=== PATIENT | female | born 1955 | race Caucasian/White ===

== ENCOUNTER 2016-10-29 11:49 | Emergency (ER) | payer OTHER ==
[~2016-10-29] VITALS: Ht 165.1 cm; Wt 56.0 kg
[~2016-10-29 11:49] MED LIST: ALPR2TAB3 PO; AMIT10 PO; ATEN1TAB73 PO; CYCL1PAK PO; DICL75 PO; HYDR12.56 PO; HYDR200T3 PO; LOVA10TA PO; METH2.5 PO; PRED5TAB PO; SUMA50TA2 PO
[2016-10-29 11:53] VITALS: BP 128/72; PULSE 92; RESP 15; TEMP 98.4; O2SAT 99
--- NOTE | 2016-10-29 13:08 | PD ---
HPI Chief Complaint: Medical Clearance Time Seen by Provider: 12:57 Travel History International Travel<30 days: No Contact w/Intl Traveler<30days: No Traveled to known affect area: No History of Present Illness HPI 60-year-old female presents to the ED for evaluation of 3 day history of sore throat, difficulty swallowing her own secretions. She denies fever, chills, nausea, vomiting, headache, ear pain, rhinorrhea, cough. She denies known sick contacts. 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 No treatments at the home. PFSH Past Medical History Arthritis: Yes Cancer: No Cardiovascular Problems: Yes Diabetes: No Glaucoma: No Hepatitis: No Hiatal Hernia: No Hypertension: Yes Respiratory: No Immunizations Current: Yes (shingles) Migraines: Yes Thyroid Disease: No Tetanus Vaccination: Unknown ?: Not Past Surgical History Abdominal Surgery: No Cardiac Surgery: No Ear Surgery: Yes (RIGHT EAR) Endocrine Surgery: No Eye Surgery: No Genitourinary Surgery: No Gynecologic Surgery: Yes (LASH/BSO) Hysterectomy: Yes Oral Surgery: No Pacemaker: No Thoracic Surgery: No Other Surgery: Yes Social History Alcohol Use: No Tobacco Use: No Substance Use: No Allergies-Medications (Allergen,Severity, Reaction): Coded Allergies: acetaminophen (Unverified Allergy, Severe, nausea and vomiting, 10/29/16) hydrocodone (Unverified Allergy, Severe, nausea and vomiting, 10/29/16) morphine (Unverified Allergy, Severe, VOMITING, 10/29/16) tramadol (Unverified Allergy, Severe, NAUSEA, 10/29/16) penicillin G (Unverified Allergy, Mild, Rash, 10/29/16) Reported Meds & Prescriptions Reported Meds & Active Scripts Active Magic Mouthwash Adult Liq (Multi-Ingredient Mouthwash/Gargle) 120 Ml Susp 10 Ml SWISH-SWAL ACHS 7 Days Each 5mL contains: Nystatin 200,000units, Diphenhydramine 4.25mg, Viscous Lidocaine 10mg, Dover syrup 0.8 mL Azithromycin 250 Mg Tab 250 Mg PO DIRECTED Take 2 tabs (500 mg) on day 1 then 1 tab daily x 4 days. Reported Atenolol 25 Mg Tab 25 Mg PO BID Amitriptyline (Amitriptyline HCl) 50 Mg Tab 50 Mg PO HS Hydroxychloroquine (Hydroxychloroquine Sulfate) 200 Mg Tab 200 Mg PO BID Takw with food Sumatriptan (Sumatriptan Succinate) 50 Mg Tab 50 Mg PO ONCE PRN If a satisfactory response has not been obtained at 2 hours, a second dose may be administered Prednisone 5 Mg Tab 5 Mg PO DAILY Hydrochlorothiazide 12.5 Mg Cap 12.5 Mg PO DAILY Methotrexate 2.5 Mg Tab 10 Mg PO Q7D Alprazolam 0.25 Mg Tab 0.25 Mg PO Q6H PRN Review of Systems Except as stated in HPI: all other systems reviewed are Neg Physical Exam Narrative GENERAL: Well-nourished, well-developed nontoxic appearing white female in no acute distress. SKIN: Warm and dry. HEAD: Normocephalic. Atraumatic. EYES: No scleral icterus. No injection or drainage. PERRLA. EOMI. ENT: Pearly cotter tympanic membranes bilaterally. Nasal mucosa is moist. Oropharynx without moderate posterior erythema. No edema. No tonsillar exudate. No uvular deviation. Airway patent. Floor of the mouth is soft. NECK: Supple, trachea midline. Bilateral submandibular lymphadenopathy. CARDIOVASCULAR: Regular rate and rhythm without murmurs, gallops, or rubs. 2+ DP and radial pulses bilaterally. RESPIRATORY: Breath sounds clear and equal bilaterally. No accessory muscle use. GASTROINTESTINAL: Abdomen soft, non-tender, nondistended. + Bowel sounds MUSCULOSKELETAL: No cyanosis, or edema. BACK: Nontender without obvious deformity. No CVA tenderness. Data Data Last Documented VS Vital Signs Date Time Temp Pulse Resp B/P (MAP) Pulse Ox O2 Delivery O2 Flow Rate FiO2 10/29/16 14:06 65 18 159/77 (104) 99 10/29/16 11:53 98.4 Orders Orders Group A Rapid Strep Screen (10/29/16 12:57) Influenzae A/B Antigen (10/29/16 12:57) Strep Culture (Group A) (10/29/16 13:15) MDM Medical Decision Making Medical Screen Exam Complete: Yes Emergency Medical Condition: Yes Differential Diagnosis Pharyngitis versus strep pharyngitis versus less likely peritonsillar abscess versus other Narrative Course 60-year-old female presents to the ED for evaluation of 3 day history of sore throat, difficulty swallowing her own secretions. She denies fever, chills, nausea, vomiting, headache, ear pain, rhinorrhea, cough. Vitals reviewed. Physical exam reveals mild to moderate posterior oropharyngeal erythema. No edema. No uvular deviation. Airway patent. For the mouth is soft. Positive submandibular lymphadenopathy bilaterally, otherwise unremarkable. Rapid strep and influenza swab was negative. We'll treat for pharyngitis. Patient is allergic to penicillin, was prescribed Z-Julio, Magic mouthwash. She is instructed to call medications as prescribed, follow up with the primary care or ENT, return for worsening symptoms. She asked for and received a work note. She indicated understanding of instructions and is agreeable to the care plan. She is stable and discharged home. Diagnosis Primary Impression: Pharyngitis, acute Qualified Codes: J02.9 - Acute pharyngitis, unspecified Referrals: Ear / Nose / Throat Specialist Patient Instructions: General Instructions, Pharyngitis (ED) Additional Instructions: Rest, hydrate. Take all antibiotics as prescribed, even if your symptoms resolve. Gargle and spit Magic mouthwash couple times a day as needed for pain. Follow-up with your primary care provider or the ENT doctor. Return to the ED for any urgent or emergent medical condition. Med/Other Pt SpecificInfo: Prescription(s) given Scripts Pldujnui-Chnfmyjrhpwpvai-Quvdwsthc Liq (Magic Mouthwash Adult Liq) 120 Ml Susp 10 ML SWISH-SWAL ACHS for Sore Throat for 7 Days, #120 ML 0 Refills Each 5mL contains: Nystatin 200,000units, Diphenhydramine 4.25mg, Viscous Lidocaine 10mg, Dover syrup 0.8 mL Prov: Sanjiv Simmons MD 10/29/16 Azithromycin (Azithromycin) 250 Mg Tab 250 MG PO DIRECTED for Infection, #6 TAB 0 Refills Take 2 tabs (500 mg) on day 1 then 1 tab daily x 4 days. Prov: Sanjiv Simmons MD 10/29/16 Disposition: 01 DISCHARGE HOME Condition: Stable Elena Oviedo Oct 29, 2016 13:08
[2016-10-29] MEDS ORDERED: ALPR0.25 PO (13:10)
[2016-10-29] MEDS ORDERED: METH2.5T PO (13:10)
[2016-10-29] MEDS ORDERED: HYDR12.57 PO (13:10)
[2016-10-29] MEDS ORDERED: HYDR200T3 PO (13:10)
[2016-10-29] MEDS ORDERED: ATEN25TA PO (13:10)
[2016-10-29] MEDS ORDERED: SUMA50TA2 PO (13:10)
[2016-10-29] MEDS ORDERED: AMIT50TA3 PO (13:10)
[2016-10-29] MEDS ORDERED: PRED5TAB PO (13:10)
[2016-10-29] MEDS ORDERED: AZIT250T3 PO (13:51)
[2016-10-29] MEDS ORDERED: MAGICADU2 SWISH-SWAL (13:51)
[2016-10-29 14:06] VITALS: BP 159/77
== END 2016-10-29 14:07 | disposition home or self-care (01) ==
LOC: NEPD 11:49
DX: J02.9 Acute pharyngitis, unspecified (principal); I10 Essential (primary) hypertension
CPT/HCPCS: 87081; 87804; 87880; 99284